=== PATIENT | male | born 1955 | race Caucasian/White ===

== ENCOUNTER → 2017-04-01 | Outpatient (CLI) | payer OTHER ==
[~2017-04-01] MED LIST: ACTOS; AMLODIPINE BESYL5 MG PO; ASPIRIN81 MG PO; BAYER CHEWABLE81 MG PO; BENICAR PO; BLOOD PRESSURE MED?; CHANTIX PO; CIALIS PO; GLUCOPHAGE XR500 MG PO; JANUVIA PO; LESCOL; LIPITOR40 MG DOB; LIPITOR40 MG PO; METFORMIN PO; METOPROLOL SUCC50 MG PO; MOBIC PO; OMEPRAZOLE20 M1 PO; PIOGLITAZONE-M1 EAC1 PO; PRILOSEC PO; TOPROL XL50 MG PO; UNKNOWN HTN MED; ZANTAC; [UNRECOGNIZED DRUG - OTHER]; [UNRECOGNIZED DRUG - REMARK]
--- NOTE | ~2017-04-01 | US6 ---
[facility] A Service of [facility] & [facility] RADIOLOGY TEXT RESULTS PATIENT: RONY WILLIAMSON LOCATION: [facility] : 53 UNIT #: [id number] AGE: [address]: Mian Medrano MD SEX: M ORDER DR: [id number] [facility]. [place], [place] [address] [id number] O MR#: [id number] Acc #: [id number] NAME: RONY WILLIAMSON : 1955 SEX: M STUDY DATE/TIME: 04/01/2017 7:30 UNIT: [facility] ROOM: STUDY DESCRIPTION: US Abdominal Limited Attending Physician: Mian Medrano M.D. Referring Physician: Mian Medrano M.D. Ordering Physician: Mian Medrano M.D. Primary Care Physician: Mian Medrano M.D. MEDICAL IMAGING REPORT This report is preliminary unless electronic signature is present EXAM Right upper quadrant ultrasound, 04/01/2017. HISTORY Right upper quadrant abdominal pain for 2 weeks. FINDINGS The liver demonstrates a somewhat heterogeneous echotexture but no cystic or solid mass lesions were seen in the liver. The intra and extrahepatic bile ducts are not dilated. The gallbladder contains a 4 mm echogenic focus along its wall which demonstrates no evidence of shadowing. The lesion is nonmobile and suggestive of a small polyp. There is no evidence of cholelithiasis, gallbladder wall thickening, or pericholecystic fluid. The common duct measures 3 mm. The pancreas is poorly visualized due to overlying bowel gas. The right kidney is normal. IMPRESSION 1. Small gallbladder polyp. No evidence of cholelithiasis. 2. Poor visualization of the pancreas due to overlying bowel gas. Dictated by... Dwight Merino M.D. THIS IS AN ELECTRONICALLY VERIFIED REPORT Dwight Merino M.D. at 04/02/2017 8:12 AM DARIO/lamberto TD: 04/01/2017 14:18 JOB #: [id number] MEDICAL IMAGING REPORT [facility] A Service of [facility] & [facility] RADIOLOGY TEXT RESULTS PATIENT: RONY WILLIAMSON LOCATION: [facility] #: [id number] : [birth year] UNIT #: [id number] AGE: [address]: Mian Medrano MD SEX: M ORDER DR: Page 1 of 1 COPY
== END | disposition home or self-care (01) ==
LOC: CGUS 07:13
DX: R11.2 Nausea with vomiting, unspecified (principal); K82.4 Cholesterolosis of gallbladder
CPT/HCPCS: 76705

== ENCOUNTER → 2017-04-12 | Day surgery (SDC) | payer OTHER ==
--- NOTE | ~2017-04-12 | OR ---
Unit #: [id number] #: [id number] Patient: RONY WILLIAMSON [id number] [address] [place], [place] [address] [id number] O MR#: [id number] NAME: RONY WILLIAMSON ROOM: Date of Procedure: 04/12/2017 Admission Date: 04/12/2017 Surgeon: Alejandro Marley M.D. : 1955 Attending Physician: Alejandro Marley M.D. Primary Care Physician: Mian Medrano M.D. OPERATIVE REPORT PRIMARY CARE PHYSICIAN Dr. Mian Medrano. PREOPERATIVE DIAGNOSES The patient has presented with history of early satiety, postprandial dyspepsia, and bloating, and feeling of food hanging in the stomach. He has history of diabetes, but no peripheral neuropathy. He also has a history of intermittent dysphagia. PROCEDURES PERFORMED Upper gastrointestinal endoscopy and biopsy. POSTOPERATIVE DIAGNOSES 1. The patient had distal esophageal Schatzki ring. This was felt to be nonobstructing, wide open; however, it was dilated by repeated biopsy of the same area of the ring. 2. Mild prepyloric antral gastritis. Biopsy obtained from the antrum for CLOtest. 3. Grade 1 to 2 distal erosive esophagitis with linear erosion ascending above the Z-line in the distal esophagus. 4. Rest of the examination up to third part of duodenum was normal. RECOMMENDATIONS 1. The patient is advised to increase the dose of omeprazole to 40 mg p.o. daily. 2. We will obtain an outpatient gastric emptying study. 3. Will be followed up in the office in 6 to 8 weeks' time. SEDATION USED MAC. DESCRIPTION OF PROCEDURE Following detailed explanation of potential risks and complications of an upper endoscopy, namely perforation, bleeding, and complication related to sedation, the patient was brought to GI lab and laid in the left lateral decubitus position. Lubricated tip of the Olympus video upper endoscope was passed through the bite-block into the proximal esophagus under direct vision. The entire esophageal mucosa was examined. The patient was noted to have distal esophageal Schatzki ring with a classic appearance. In addition, grade 1 distal erosive esophagitis noted. The scope was then advanced into the gastric cavity and the latter was insufflated. Mucosa of the fundus, body, and antrum was examined, and mild diffuse prepyloric Unit #: [id number] #: [id number] Patient: RONY WILLIAMSON antral erythema was noted in the form of antral gastritis. Pylorus was intubated with visualization of the normal duodenal bulb and second and third part of the duodenum. Upon withdrawal and retroflexion, incisura, cardia, and greater curve were examined and biopsy was obtained from the antrum for CLOtest. The scope was withdrawn in the distal esophagus. Multiple punch biopsies were obtained from the same area of the ring in the distal esophagus and sent for histology. The entire esophageal mucosa was examined all the way up to pharynx. No additional findings noted. The patient tolerated the procedure without any postprocedure complications. Dictated by... Juan Giraldo/kasia TD: 04/13/2017 07:02 JOB #: [id number] OPERATIVE REPORT Page 1 of 1 X Alejandro Marley MD X PROCEDURE OPERATIVE NOTE
== END | disposition home or self-care (01) ==
LOC: COPS 08:23
DX: K22.2 Esophageal obstruction (principal); K21.0 Gastro-esophageal reflux disease with esophagitis; K29.70 Gastritis, unspecified, without bleeding; E11.9 Type 2 diabetes mellitus without complications; Z79.84 Long term (current) use of oral hypoglycemic drugs; I10 Essential (primary) hypertension
CPT/HCPCS: 82947; 87077; J2250

== ENCOUNTER → 2017-04-23 | Outpatient (CLI) | payer OTHER ==
--- NOTE | ~2017-04-23 | NM19 ---
[facility] A Service of [facility] & [facility] & [facility] RADIOLOGY TEXT RESULTS PATIENT: RONY WILLIAMSON LOCATION: [facility] : 53 UNIT #: [id number] AGE: [address]: Alejandro Marley MD SEX: M ORDER DR: [id number] [facility] [address] [place], [place] [address] [id number] O MR#: [id number] Acc #: [id number] NAME: RONY WILLIAMSON : 1955 SEX: M STUDY DATE/TIME: 04/23/2017 8:26 UNIT: [facility] ROOM: STUDY DESCRIPTION: SC Gastric Emptying Study Attending Physician: Alejandro Marley M.D. Referring Physician: Alejandro Marley M.D. Ordering Physician: Alejandro Marley M.D. Primary Care Physician: Mian Medrano M.D. MEDICAL IMAGING REPORT This report is preliminary unless electronic signature is present EXAM Gastric emptying scan, 04/23/2017. HISTORY Nausea and vomiting, diarrhea, abdominal fullness and bloating for 1 month, early satiety. FINDINGS The patient ingested 505 mcCi of technetium 99m tagged sulfur colloid in eggs. Images of the upper abdomen were obtained for 4 hours. After 1 hour, the stomach was 22% empty and after 2 hours, the stomach was 73% empty and after 4 hours, the stomach was 99% empty. Normal range is greater than 60% empty after 2 hours of imaging and greater than 90% empty after 4 hours of imaging. IMPRESSION Normal gastric emptying after 2 and 4 hours of imaging. Dictated by... Dwight Merino M.D. THIS IS AN ELECTRONICALLY VERIFIED REPORT Dwight Merino M.D. at 04/24/2017 2:17 PM DARIO/deborah TD: 04/23/2017 18:58 JOB #: [id number] MEDICAL IMAGING REPORT Page 1 of 1 COPY
== END | disposition home or self-care (01) ==
LOC: CNUC 07:30
DX: R68.81 Early satiety (principal); R63.4 Abnormal weight loss; R10.13 Epigastric pain
CPT/HCPCS: 78264; A9541